=== PATIENT | male | born 1990 | race Caucasian/White ===

== ENCOUNTER → 2016-12-10 | Outpatient (CLI) | payer MEDICARE, OTHER ==
[2016-12-10 10:56] LABS: HEMOGLOBIN 14.3 gm/dl (14.0-17.5); RED BLOOD COUNT 4.3 M/UL (4.20-5.50); WHITE BLOOD COUNT 17.9 K/UL (4.5-11.0)
[2016-12-10 11:38] LABS: BUN/CREATININE RATIO 36 (0-10)
== END ==
LOC: LAB 10:20
PROVIDERS: Nurse Practitioner Primary Care
DX: G40.309 Generalized idiopathic epilepsy and epileptic syndromes, not intractable, without status epilepticus (principal); R50.9 Fever, unspecified; F72 Severe intellectual disabilities
CPT/HCPCS: 36415; 71020; 80053; 85025; 87081; 87880

== ENCOUNTER 2021-05-10 17:05 | Emergency (ER) | payer MEDICARE, OTHER ==
[~2021-05-10 17:05] MED LIST: BENEPROTEIN1 EACH PO; BPO TP; CATAPRES 0.1MG0.1 MG PO; COLACE 100MG C100 MG PO; DEPAKOTE SPRIN125 MG PO; IBUPROFEN600 MG PO; KEFLEX CAP 500500 MG PO; KEPPRA1000 MG PO; KEPPRA250 MG PO; KLONOPIN TAB 00.5 MG PO; NAYZILAM5 MG/0.1 M; THERAGRAN M TAB1 EA PO; VITAMIN B-1100 MG PO; ZOFRAN ODT 4 MG4 MG PO; ZOFRAN4 MG PO; ZOVIRAX 800 MG800 MG PO
[2021-05-10 18:10] LABS: HEMOGLOBIN 16.2 gm/dl (14.0-17.5); RED BLOOD COUNT 4.87 M/UL (4.20-5.50)
[2021-05-10 18:39] LABS: BUN/CREATININE RATIO 23 (0-10)
== END 2021-05-10 21:27 | disposition home or self-care (01) ==
LOC: ER1 17:05
PROVIDERS: Family Medicine
DX: G40.909 Epilepsy, unspecified, not intractable, without status epilepticus (principal); E87.6 Hypokalemia; R00.0 Tachycardia, unspecified; Z88.1 Allergy status to other antibiotic agents
CPT/HCPCS: 71045; 80053; 81001; 83605; 85025; 93005; 96374; 99284; G0480; J2060

== ENCOUNTER 2022-03-07 21:16 | Emergency (ER) | payer MEDICARE, OTHER ==
[2022-03-07 22:01] LABS: HEMOGLOBIN 15.6 gm/dl (14.0-17.5); RED BLOOD COUNT 4.71 M/UL (4.20-5.50); WHITE BLOOD COUNT 10.6 K/UL (4.5-11.0)
[2022-03-07 22:53] LABS: BUN/CREATININE RATIO 37 (0-10)
== END 2022-03-08 03:14 | disposition home or self-care (01) ==
LOC: ER1 21:16
PROVIDERS: Family Medicine
DX: G40.909 Epilepsy, unspecified, not intractable, without status epilepticus (principal); F72 Severe intellectual disabilities
CPT/HCPCS: 51701; 71045; 80053; 81001; 82550; 82553; 83605; 83690; 83735; 84484; 85025; 93005; 96374; 99284; G0480; J2060

== ENCOUNTER 2022-04-28 15:41 | Emergency (ER) | payer MEDICARE, OTHER | END 2022-04-28 18:35 | disposition home or self-care (01) | LOC: ER1 15:41 | DX: S00.81XA Abrasion of other part of head, initial encounter (principal); W01.10XA Fall on same level from slipping, tripping and stumbling with subsequent striking against unspecified object, initial encounter | CPT/HCPCS: 70450; 99283 ==